=== PATIENT | male | born 1995 | race Caucasian/White ===

== ENCOUNTER 2017-07-30 02:26 | Emergency (ER) | payer SELFPAY ==
[2017-07-30] MEDS ORDERED: diphenhydrAMINE HCl 50 MG/ML 1 ML VIAL ONE (02:48)
[2017-07-30] MEDS ORDERED: Sodium Chloride 0.9% 0 ML ONE (02:48)
[2017-07-30] MEDS ORDERED: Metoclopramide HCl 10 MG/2 ML VIAL ONE (02:48)
[2017-07-30] MEDS ORDERED: Ketorolac Tromethamine 30 MG/ML VIAL ONE (03:12)
== END 2017-07-30 04:48 | disposition home or self-care (01) ==
LOC: ERS 02:26
DX: G43.909 Migraine, unspecified, not intractable, without status migrainosus (principal); Z87.891 Personal history of nicotine dependence
CPT/HCPCS: 96365; 96375; J1200; J1885; J2765; J7050

== ENCOUNTER 2018-03-02 12:44 | Emergency (ER) | payer SELFPAY ==
[2018-03-02 13:24] LABS: #Lymphocytes 1.3 thou/uL (1.20-3.40); #Monocytes 0.8 thou/uL (0.11-0.59); #Neutrophils 6.9 thou/uL (1.40-6.50); %Basophils 0.5 % (0.0-1.0); %Eosinophils 0.5 % (0.0-10.0); %Lymphocytes 13.9 % (21.0-51.0); %Monocytes 9.1 % (0.0-10.0); Hemoglobin 16.5 g/dL (14.0-18.0); Mean Corpuscular HGB CONC 34.2 g/dL (32.0-36.0); Mean Corpuscular Hemoglobin 30.2 pg (27.0-31.0); Mean Corpuscular Volume 88.2 fl (80.0-94.0); Mean Platelet Volume 6.6 fL (7.4-10.4); Platelet Count 263 thou/uL (130-400); RBC Distribution Width 11.3 % (11.5-14.5); Red Blood Cell (RBC) Count 5.46 mill/uL (4.70-6.10); White Blood Cell (WBC) Count 9.1 thou/uL (4.8-10.8)
[2018-03-02] MEDS ORDERED: diphenhydrAMINE 50 MG/ML VIAL ONE (13:28)
[2018-03-02] MEDS ORDERED: Promethazine HCl 25 MG/ML VIAL ONE (13:28)
[2018-03-02 13:47] LABS: ALT (SGPT) 12 U/L (8-55); AST (SGOT) 15 U/L (5-34); Albumin 4.6 g/dL (3.5-5.0); Alkaline Phosphatase 87 U/L (40-150); Anion Gap 14 mmol/L (10-20); BUN (Urea Nitrogen) 8 mg/dL (8.9-20.6); CRP (Inflammatory) Less than 0.50 mg/dL (= or < 0.5); Calc. Creatinine Clearance 0 mL/min (70-130); Calcium 9.8 mg/dL (7.8-10.44); Carbon Dioxide 25 mmol/L (22-29); Chloride 104 mmol/L (98-107); Estimated GFR-MDRD Greater than 90; Globulin 2.6 g/dL (2.4-3.5); Glucose 108 mg/dL (70-105); Potassium 3.7 mmol/L (3.5-5.1); Protein, Total 7.2 g/dL (6.0-8.3); Sodium 139 mmol/L (136-145)
== END 2018-03-02 15:03 | disposition home or self-care (01) ==
LOC: ERS 12:44
DX: R51 Headache (principal); Z87.891 Personal history of nicotine dependence
CPT/HCPCS: 36415; 80053; 85025; 85652; 86140; 96365; 96375; J1200; J2550